=== PATIENT | female | born 1995 | race Caucasian/White ===

== ENCOUNTER 2021-12-11 03:54 | Emergency (ER) | payer OTHER ==
[~2021-12-11] VITALS: Ht 160 cm; Wt 95.3 kg
[2021-12-11 03:58] VITALS: BP 156/93
--- NOTE | 2021-12-11 04:05 | NUR ---
TO BED 9 FOLLOWING TRIAGE
[2021-12-11] MEDS ORDERED: KETOROLAC 30 MG/ML VIAL IVP ONE ×2 (04:55)
[2021-12-11] MEDS ORDERED: ONDANSETRON 4 MG/2 ML VIAL IVP ONE (04:55)
[2021-12-11] MEDS ORDERED: NACL 0.9% 1,000 ML IV ONE (04:55)
[2021-12-11] MEDS ORDERED: PANTOPRAZOLE 40 MG INJ VIAL IVP ONE (04:55)
[2021-12-11] MEDS ORDERED: NACL 0.9% 1,000 ML IV SCH (04:55)
--- NOTE | 2021-12-11 05:22 | NUR ---
pt taken to ct via w/c.
[2021-12-11 05:43] LABS: ALBUMIN 3.6 g/dL (3.4-5.0); ANION GAP 10.9 (8-16); CARBON DIOXIDE 26.1 mmol/L (21-32); CREATININE 0.8 mg/dL (0.6-1.3); TOTAL BILIRUBIN 0.2 mg/dL (0.0-1.0)
[2021-12-11] MEDS ORDERED: POTASSIUM CHLORIDE 10 MEQ TABER PO ONE (05:55)
[2021-12-11 06:00] LABS: BASOPHILS # (AUTO) 0.1 K/uL (0.00-0.22); BASOPHILS % (AUTO) 0.7 % (0.0-2.0); EOSINOPHILS # (AUTO) 0.1 K/uL (0-0.4); EOSINOPHILS % (AUTO) 1.5 % (0.0-4.0); HEMATOCRIT 35.9 % (36-48); HEMOGLOBIN 11.9 g/dL (12.0-16.0); LYMPHOCYTES # (AUTO) 4.5 K/uL (2.5-16.5); LYMPHOCYTES % (AUTO) 49.6 % (20.5-51.1); MEAN CORPUSCULAR HEMOGLOBIN 27 pg (27-31); MEAN CORPUSCULAR HGB CONC 33 g/dL (33-37); MEAN CORPUSCULAR VOLUME 82.1 fL (80-94); MONOCYTES # (AUTO) 0.4 K/uL (0.8-1.0); MONOCYTES % (AUTO) 4.6 % (1.7-9.3); NEUTROPHILS # (AUTO) 3.9 K/uL (1.8-7.7); NEUTROPHILS % (AUTO) 43.6 % (42.2-75.2); PLATELET COUNT (AUTO) 324 K/uL (140-450); RED BLOOD CELL COUNT(AUTO) 4.38 MIL/uL (4.20-5.40); RED CELL DISTRIBUTION WIDTH 13.7 % (11.6-13.7)
[2021-12-11] MEDS ORDERED: HYDROcodone/APAP 5/325 MG 1 TAB TAB PO ONE (06:50)
--- NOTE | 2021-12-11 07:17 | NUR ---
Pt report given to Herminia [facility]. Transfer of care at this time.
[2021-12-11] MEDS ORDERED: ONDA-188 SL (08:52)
[2021-12-11] MEDS ORDERED: FAMO-90 PO (08:52)
[2021-12-11] MEDS ORDERED: BEN10 PO (08:52)
[2021-12-11 09:31] VITALS: BP 124/78
--- NOTE | 2021-12-11 09:31 | NUR ---
Patient discharged with v/s stable. Written and verbal after care instructions given and explained. Patient alert, oriented and verbalized understanding of instructions. Ambulatory with steady gait. All questions addressed prior to discharge. ID band removed. Patient advised to follow up with PMD. Rx of famotidine, ondansetron, dicyclomine (sent) given. Patient educated on indication of medication including possible reaction and side effects. Opportunity to ask questions provided and answered. copy of labs and ct given
[2021-12-11 10:23] LABS: APPEARANCE,URINE CLEAR (CLEAR); BILIRUBIN,URINE NEGATIVE (NEGATIVE); BLOOD, URINE NEGATIVE (NEGATIVE); COLOR,URINE YELLOW (YELLOW); LEUKOCYTE ESTERASE ,URINE NEGATIVE (NEGATIVE); NITRITE, URINE NEGATIVE (NEGATIVE); PH,URINE 5.5 (5.0-9.0); UGLUCOSE NEGATIVE (NEGATIVE)
== END 2021-12-11 09:32 | disposition home or self-care (01) ==
LOC: MED 03:54
DX: R10.30 Lower abdominal pain, unspecified (principal); Z79.899 Other long term (current) drug therapy
CPT/HCPCS: 36415; 74176; 80053; 81003; 81025; 83690; 84703; 85025; 96374; 96375; 99284; C9113; J1885; J2405; J7030